=== PATIENT | male | born 1985 | race Caucasian/White ===

== ENCOUNTER 2020-01-17 15:56 | Emergency (ER) | payer OTHER ==
[~2020-01-17] VITALS: Ht 188 cm; Wt 99.8 kg
[2020-01-17] MEDS ORDERED: HUMALOG100 UNIT/1 SUBCUTANEO (16:12)
[2020-01-17] MEDS ORDERED: SIMVASTATIN5 MG (16:13)
[2020-01-17] MEDS ORDERED: ASA81 MG (16:13)
[2020-01-17] MEDS ORDERED: LYRICA50 MG (16:13)
== END 2020-01-17 21:11 | disposition home or self-care (01) ==
LOC: ER 15:56
DX: E11.10 Type 2 diabetes mellitus with ketoacidosis without coma (principal); Z03.818 Encounter for observation for suspected exposure to other biological agents ruled out